=== PATIENT | male | born 1965 | race Caucasian/White ===

== ENCOUNTER → 2017-03-10 08:42 | Outpatient (CLI) | payer MEDICAID ==
[2012-07-03 06:33] VITALS: BMI 20.2
== END | disposition home or self-care (01) ==
LOC: D.MRI 08:42
DX: M25.561 Pain in right knee (principal)

== ENCOUNTER 2017-07-18 13:10 | Emergency (ER) | payer MEDICAID ==
[2012-07-03 06:33] VITALS: BMI 20.2
[~2017-07-18 13:10] MED LIST: LISINOPRIL10 MG PO
[2017-07-18 15:40] LABS: BASOPHILS 0.6 % (0-2); EOSINOPHILS 0.7 % (0-7); HEMATOCRIT 36.3 % (42.0-54.0); IMMATURE GRANULOCYTES 0.3 % (0-5); LYMPHOCYTES 16.1 % (15-50); MCH 31.3 pg (26.0-34.0); MCHC 33.1 g/dL (31.0-37.0); MCV 94.8 fL (80.0-100.0); MEAN PLATELET VOLUME 9.2 fL (7.4-10.4); MONOCYTES 10.9 % (2-11); NEUTROPHILS 71.4 % (40-80); RBC 3.83 10x6/uL (4.20-6.10); RDW 14.3 % (11.5-14.5); WBC 12.4 10x3/uL (4.8-10.8)
[2017-07-18 15:45] LABS: PLATELET COUNT 348 10x3/uL (130-400)
[2017-07-18 15:48] LABS: APPEARANCE CLEAR (CLEAR); BILIRUBIN NEGATIVE (NEGATIVE); COLOR YELLOW (YELLOW); GLUCOSE NEGATIVE (NEGATIVE); KETONE MODERATE mg/dL (NEGATIVE); NITRITE POSITIVE (NEGATIVE); PROTEIN TRACE mg/dL (NEGATIVE); SPECIFIC GRAVITY 1.015 (1.005-1.020); UROBILINOGEN NORMAL (NORMAL)
[2017-07-18 15:49] LABS: BACTERIA MODERATE /hpf (NONE SEEN); RED CELLS - URINE OCC /hpf (0-5); WHITE CELLS - URINE 0-5 /hpf (0-5)
[2017-07-18 15:55] LABS: UDS - AMPHET NEGATIVE QUAL (NEGATIVE); UDS - BARB NEGATIVE QUAL (NEGATIVE); UDS - BENZO POSITIVE QUAL (NEGATIVE); UDS - COCAINE NEGATIVE QUAL (NEGATIVE); UDS - OPIATE NEGATIVE QUAL (NEGATIVE); UDS - PCP NEGATIVE QUAL (NEGATIVE); UDS - THC POSITIVE QUAL (NEGATIVE)
[2017-07-18 16:09] LABS: ALBUMIN 3.6 g/dL (3.4-5.0); ALKALINE PHOSPHATASE 74 U/L (46-116); ALT (SGPT) 13 U/L (10-68); BILIRUBIN - TOTAL 0.15 mg/dL (0.2-1.3); CALC OSMOLALITY 285 mosm/kg (275-300); CALCIUM 8.6 mg/dL (8.5-10.1); CARBON DIOXIDE 25.2 mmol/L (21.0-32.0); CHLORIDE - SERUM 108 mmol/L (98-107); CREATININE - SERUM 0.6 mg/dL (0.6-1.3); GLUCOSE 93 mg/dL (74-106); POTASSIUM - SERUM 3.2 mmol/L (3.5-5.1); PROTEIN - SERUM 6.2 g/dL (6.4-8.2); SODIUM 143 mmol/L (136-145); UREA NITROGEN 15 mg/dL (7-18); eGFR NON AFRICAN AMERICAN > 90 mL/min (90-120)
[2017-07-18 16:11] LABS: VALPROIC ACID (DEPAKOTE) 43.7 ug/mL (50.0-100.0)
== END 2017-07-18 16:45 | disposition home or self-care (01) ==
LOC: D.ER 13:10
PROVIDERS: Nurse Practitioner Family
DX: S69.91XA Unspecified injury of right wrist, hand and finger(s), initial encounter (principal); W19.XXXA Unspecified fall, initial encounter; Y93.89 Activity, other specified; Y92.029 Unspecified place in mobile home as the place of occurrence of the external cause; N39.0 Urinary tract infection, site not specified

== ENCOUNTER 2017-07-21 11:56 | Outpatient (CLI) | payer MEDICAID ==
[2017-07-21 12:31] LABS: HEMATOCRIT 37.2 % (42.0-54.0); HEMOGLOBIN 12.6 g/dL (13.5-17.5); MCH 32.4 pg (26.0-34.0); MCHC 33.9 g/dL (31.0-37.0); MCV 95.6 fL (80.0-100.0); MEAN PLATELET VOLUME 8.9 fL (7.4-10.4); RBC 3.89 10x6/uL (4.20-6.10); RDW 14.1 % (11.5-14.5); WBC 12.3 10x3/uL (4.8-10.8)
[2017-07-21] MEDS ORDERED: KLONOPIN1 MG PO (13:55)
[2017-07-21] MEDS ORDERED: DILANTIN100 MG PO (13:57)
[2017-07-21] MEDS ORDERED: DILANTIN50 MG PO (13:58)
[2017-07-21] MEDS ORDERED: KEPPRA SOLU100 MG/ML PO ×2 (14:00→14:01)
[2017-07-21] MEDS ORDERED: BACLOFEN20 M1 PO (14:02)
[2017-07-21] MEDS ORDERED: CLARITIN 10 MG10 MG PO (14:04)
[2017-07-21] MEDS ORDERED: CALCIUM 500 + D1 TAB PO (14:04)
[2017-07-21] MEDS ORDERED: VESICARE5 MG PO (14:06)
[2017-07-21] MEDS ORDERED: DEPAKOTE500 MG PO (14:06)
[2017-07-21] MEDS ORDERED: PERCOCET 5-3251 TAB PO (14:07)
[2017-07-21] MEDS ORDERED: CIPRO500 MG PO (14:08)
[2017-07-21 14:18] VITALS: BP 101/61; BMI 20.9
--- NOTE | 2017-07-21 14:50 | NUR ---
DR WILLARD NOTIFIED OF PATIENT'S CURRENT TREATMENT FOR URINARY INFECTION AND TEMP AT THIS TIME OF 99.3. DR WILLARD STATES SURGERY NEEDS TO BE CANCELLED
--- NOTE | 2017-07-21 14:55 | NUR ---
PATIENT NOTIFIED OF SURGERY CANCELLATION AND REASON. PATIENT UPSET BUT AGREEABLE. RIGHT FOREARM PIV DC'D, PATIENT TO DRESS IN PERSONAL CLOTHING
--- NOTE | 2017-07-21 15:04 | NUR ---
PATIENT ASKS IF DR WILLARD WILL GIVE HIM SOME PAIN MEDICATION, PATIENT STATES THAT [facility] "TOOK MY PERCOCET AND KLONOPIN AND KEPT IT BECAUSE I HAD A POCKET KNIFE." CALL PLACED TO DR WILLARD, DR WILLARD DECLINES TO PRESCRIBE ANYTHING AT THIS TIME, PATIENT NOTIFIED. PATIENT SITTING IN CHAIR IN ROOM, DRESSED, STATES "I'M ABOUT TO CALL MY FRIEND THAT IS GOING TO DRIVE ME HOME."
--- NOTE | 2017-07-21 16:30 | NUR ---
PATIENT STATES HIS RIDE IS ON THE WAY AND REQUESTS WHEELCHAIR RIDE TO OUTPATIENT DOOR. PATIENT DISCHARGED VIA WHEELCHAIR TO OUTPATIENT DOOR, PATIENT WAITING ON BENCH OUTSIDE OUTPATIENT ENTRANCE. PATIENT AWAKE AND ALERT
== END 2017-07-21 11:57 | disposition home or self-care (01) ==
LOC: D.OPS 11:56 → EDSTATUS 14:05 → D.PAN 14:05 → D.OPS 16:00 → D.PAN 18:50
PROVIDERS: Anesthesiology
DX: T84.12 Displacement of internal fixation device of bones of limb (principal); Z01.812 Encounter for preprocedural laboratory examination; Z53.9 Procedure and treatment not carried out, unspecified reason

== ENCOUNTER → 2017-08-01 07:32 | Emergency (ER) | payer MEDICAID ==
[2017-07-21 14:18] VITALS: BMI 20.9
[~2017-08-01 07:32] MED LIST changes: +BACLOFEN20 M1 PO; +CALCIUM 500 + D1 TAB PO; +CIPRO500 MG PO; +CLARITIN 10 MG10 MG PO; +DEPAKOTE500 MG PO; +DILANTIN100 MG PO; +DILANTIN50 MG PO; +KEPPRA SOLU100 MG/ML PO; +KLONOPIN1 MG PO; +PERCOCET 5-3251 TAB PO; +VESICARE5 MG PO
[2017-08-01 08:57] LABS: BASOPHILS 0.3 % (0-2); EOSINOPHILS 0.4 % (0-7); HEMATOCRIT 40.7 % (42.0-54.0); HEMOGLOBIN 13.9 g/dL (13.5-17.5); IMMATURE GRANULOCYTES 0.3 % (0-5); MCH 32.2 pg (26.0-34.0); MCHC 34.2 g/dL (31.0-37.0); MCV 94.2 fL (80.0-100.0); MEAN PLATELET VOLUME 8.8 fL (7.4-10.4); MONOCYTES 7.2 % (2-11); NEUTROPHILS 83.8 % (40-80); PLATELET COUNT 348 10x3/uL (130-400); RBC 4.32 10x6/uL (4.20-6.10); RDW 13.7 % (11.5-14.5); WBC 13.4 10x3/uL (4.8-10.8)
[2017-08-01 09:13] LABS: ALBUMIN 3.4 g/dL (3.4-5.0); ALKALINE PHOSPHATASE 106 U/L (46-116); ALT (SGPT) 17 U/L (10-68); BILIRUBIN - TOTAL 0.29 mg/dL (0.2-1.3); CALC OSMOLALITY 280 mosm/kg (275-300); CALCIUM 8.8 mg/dL (8.5-10.1); CARBON DIOXIDE 23.9 mmol/L (21.0-32.0); CHLORIDE - SERUM 105 mmol/L (98-107); CREATININE - SERUM 0.6 mg/dL (0.6-1.3); GLUCOSE 106 mg/dL (74-106); POTASSIUM - SERUM 3.8 mmol/L (3.5-5.1); PROTEIN - SERUM 6.4 g/dL (6.4-8.2); SODIUM 141 mmol/L (136-145); UREA NITROGEN 13 mg/dL (7-18); eGFR NON AFRICAN AMERICAN > 90 mL/min (90-120)
== END | disposition home or self-care (01) ==
LOC: D.ER 07:32
PROVIDERS: Emergency Medicine
DX: F13.239 Sedative, hypnotic or anxiolytic dependence with withdrawal, unspecified (principal); F17.200 Nicotine dependence, unspecified, uncomplicated

== ENCOUNTER 2017-08-08 09:39 | Emergency (ER) | payer MEDICAID | END 2017-08-08 10:39 | disposition home or self-care (01) | LOC: D.ER 09:39 | DX: R56.9 Unspecified convulsions (principal); I10 Essential (primary) hypertension; Z76.0 Encounter for issue of repeat prescription ==

== ENCOUNTER 2017-09-18 21:34 | Emergency (ER) | payer MEDICAID | END 2017-09-19 00:40 | disposition home or self-care (01) | LOC: D.ER 21:34 | DX: S02.2XXA Fracture of nasal bones, initial encounter for closed fracture (principal); W05.0XXA Fall from non-moving wheelchair, initial encounter; Y93.89 Activity, other specified; Y92.129 Unspecified place in nursing home as the place of occurrence of the external cause; S80.02XA Contusion of left knee, initial encounter; I10 Essential (primary) hypertension ==

== ENCOUNTER 2018-03-09 06:40 | Day surgery (SDC) | payer MEDICAID ==
[~2018-03-09] VITALS: Ht 180.3 cm; Wt 60.3 kg
--- NOTE | ~2018-03-09 | OP ---
PATIENT NAME: ELÍAS AVELAR MEDICAL RECORD: [id number] :63 LOCATION:[facility] ADMISSION DATE: SURGEON: JOSHUA WILLARD MD DATE OF OPERATION: 03/09/2018 PREOPERATIVE DIAGNOSIS: Painful hardware of the left foot. POSTOPERATIVE DIAGNOSIS: Painful hardware of the left foot. PROCEDURE: Removal of painful hardware, dorsal aspect of the left foot. SURGEON: Joshua Willard MD ANESTHESIA: General. INTRAOPERATIVE COMPLICATIONS: None. SUMMARY OF PATHOLOGIC FINDINGS: All of the screws on the plate were loose, making removal relatively easy. Second plate over on the medial aspect of the foot was not removed as it has no evidence of causing tenderness to both physical exam and/or radiographic parameters. OPERATIVE SUMMARY IN DETAIL: After obtaining the appropriate preoperative orthopedic surgery consent as well as anesthetic consultation, evaluation and clearance, the patient was brought to the operating room and placed on the operating table in supine position. After general laryngeal mask administered, the tourniquet was placed about the proximal aspect of the left lower extremity. Left lower extremity was then prepped and draped in routine sterile fashion. The leg was elevated and exsanguinated, and the tourniquet was inflated to 350 mmHg. Fluoroscopy was brought in to identify exactly where the incision needed to be over the old incision which was very thin. An elliptical type incision was utilized to remove some of the very thin skin. Dissection was then carried down to the plate. The most prominent screw was proud and it was immediately removed along with the residual screws on the plate. The plate was also removed. The depth of the wound along with screw hole ingrowth and growth around the edge of the plate were smoothed. This was then copiously irrigated and closed with #2 Vicryl followed by 4-0 Prolene, combination of marleni sutures as well as simple sutures and mattress sutures. Sterile dressings were applied. Tourniquet was deflated. The patient was awakened and taken to recovery room in stable condition. All final needle and sponge counts were correct. TRANSINT:[id number] Voice Confirmation ID: [id number] DOCUMENT ID: [id number] JOSHUA WILLARD MD at 1035 CC: [id number] DICTATION DATE: 03/09/18 1017 PRINTING PLATE MAKER: 03/09/18 1347 DEP SD 03/09/18 [facility] [address] [place] [address]
[2018-03-09 07:24] VITALS: BP 145/71; Ht 180.3 cm; Wt 60.3 kg
[2018-03-09] MEDS ORDERED: PERCOCET 10/3251 TA1 PO (10:15)
== END 2018-03-09 13:25 | disposition home or self-care (01) ==
LOC: D.OPS 06:40 → D.PAN 07:30 → D.OPS 07:30
DX: T84.293A Other mechanical complication of internal fixation device of bones of foot and toes, initial encounter (principal); F17.200 Nicotine dependence, unspecified, uncomplicated; Z01.812 Encounter for preprocedural laboratory examination

== ENCOUNTER → 2019-07-29 10:21 | Outpatient (CLI) | payer MEDICAID ==
[2018-03-09 07:24] VITALS: BMI 18.5
[~2019-07-29 10:21] MED LIST changes: +BAYER CHEWABLE81 MG PO; +MOBIC7.5 MG PO; +MUPIROCIN22 GM TOPICAL; +PERCOCET 10/3251 TA1 PO; +PLAVIX75 MG PO; +PRAVACHOL40 MG PO
--- NOTE | 2019-07-30 13:51 | EC ---
PATIENT:ELÍAS AVELAR DATE OF SERVICE: 07/29/19 SEX: M MEDICAL RECORD: [id number] DATE OF : 63 LOCATION:[facility] AGE OF PATIENT: 54 ADMISSION DATE: 07/29/19 REFERRING PHYSICIAN: INTERPRETING PHYSICIAN: AROLDO NORRIS MD ECHOCARDIOGRAM REPORT ECHO CHARGES 5 ECHO LIMITED Date: 07/29/19 CLINICAL DIAGNOSIS: CAD/HEART MURMUR ECHOCARDIOGRAPHIC MEASUREMENTS (adult normal given) AC root (d.<3.7cm) 4.1 cm LV Septum d (<1.2 cm> 1.6 cm Valve Excursion 1.7 cm LV Septum (systole) 1.7 cm Left Atria (s.<4.0cm> 3.6 cm LVPW d(<1.2cm) 1.4 cm RV (d.<2.3cm) 4.1 cm LVPW (sytole) 1.7 cm LV diastole(<5.6CM) 4.3 cm MV E-F(>70mm/sec) cm LV systole 2.9 cm LVOT Diameter 1.9 cm MV exc.(>10mm) cm Est.ejection fraction (50-75%) % DOPPLER: LVIT cm/sec A 62.0 cm/sec E 65.0 cm/sec LA cm/sec RVSP 17 mmHg LVOT cm/sec AOP1/2T m/s Asc. Ao 89 cm/sec RVOT 110 cm/sec RA cm/sec PA cm/sec AV Gradient Peak 4.80 mmHg AV Mean 2.47 mmHg AV Area 3.0 cm MV Gradient Peak 2.48 mmHg MV Mean 1.09 mmHg MV Area cm COMMENTS: Analyst Business Analysis: 2 MARTHA DOUGLAS Mechanical Engineering Lecturer: 3 Dr. Pinon TAPE# PACS Pericardial Effusion N DATE OF SERVICE: 07/29/2019 Adequate 2D, color flow, spectral Doppler, and M-Mode. LVH is present. LV internal dimensions are normal. Wall motion is normal. EF is greater than or equal to 55%. Aortic valve is tricuspid. No evidence of stenosis by Doppler interrogation. Left atrium normal at 3.6 meters. Mitral valve shows no prolapse. Trace MR. Right-sided chambers grossly normal. Trace TR. ECHOCARDIOGRAM REPORT [id number] ELÍAS AVELAR TRANSINT:[id number] Voice Confirmation ID: [id number] DOCUMENT ID: [id number] AROLDO NORRIS MD at 1351 CC: [id number] DICTATION DATE: 07/30/19 1200 CLINICAL STAFF PHARMACIST: 07/30/19 1224 DEP CLI 07/29/19 [facility] [place] [id number] [place] [address]
--- NOTE | 2019-08-04 10:41 | ST ---
PATIENT:ELÍAS AVELAR MEDICAL RECORD: [id number] SEX: M LOCATION:[facility] ORDER #: ADMISSION DATE: 07/29/19 AGE OF PATIENT: 54 REFERRING PHYSICIAN: INTERPRETING PHYSICIAN: WADE CORDERO MD DATE OF SERVICE: 07/29/2019 INDICATION: Angina, coronary artery disease, hypertension, and hyperlipidemia. She was exercised on standard Lexiscan protocol with 27 mCi of sestamibi injected at peak stress, 9 mCi used previously for rest images. FINDINGS: Gated SPECT reveals preserved ejection fraction at 56% with good wall motion and thickening and brightening throughout all segments. SPECT imaging Cardiolite was used as myocardial perfusion agent. There is definite reversible ischemia throughout the inferior and apical segments. This includes the basal, mid, apical inferior segments as well as the apex itself. The reversibility is moderate. The amount of myocardial involved is moderate. OVERALL IMPRESSION: 1. This is an intermediate risk abnormal nuclear stress test. Reversible ischemia throughout the inferior and apical segments. 2. Gated SPECT reveals preserved ejection fraction at 56% in this patient with ongoing symptomatology, the current scan does suggest the presence of hemodynamically significant coronary artery disease. TRANSINT:[id number] Voice Confirmation ID: [id number] DOCUMENT ID: [id number] WADE CORDERO MD at 1041 CC: SONNY FUNG [id number] DICTATION DATE: 07/30/19821 STRIPPER BLACK AND WHITE: 07/31/19 0231 DEP CLI 07/29/19 [place] [id number]
== END | disposition home or self-care (01) ==
LOC: D.HCCECHO 10:21
PROVIDERS: ATTEND Internal Medicine Interventional Cardiology
DX: I20.9 Angina pectoris, unspecified (principal); R01.1 Cardiac murmur, unspecified

== ENCOUNTER 2019-08-12 10:58 | Outpatient (CLI) | payer MEDICAID ==
[~2019-08-12] VITALS: Ht 177.8 cm; Wt 65.0 kg
--- NOTE | ~2019-08-12 | HEMODYNAMI ---
PATIENT:ELÍAS AVELAR MEDICAL RECORD: [id number] : 63 LOCATION:[facility] ADMISSION DATE: 08/12/19 Generatedon:08/12/201913:38 Patient name: ELÍAS AVELAR Patient #: [id number] SSN: : 1965 Date of study: 08/12/2019 Page: Of Hemodynamic Procedure Report Patient Data Patient Demographics Procedure consent was obtained First Name: ELÍAS Gender: Male Last Name: VALENTINO : 1965 Patient #: [id number] Age: 54 year(s) Race: Unknown Additional ID: [id number] Contact details Address: [address] [place] [address] DRIVE State: [place] City: [facility] Zip code: [address] Admission Admission Data Admission Date: 08/12/2019 Admission Time: 10:58 Arrival Date: 08/12/2019 Arrival Time: 0:00 Admit Source: Other Insurance Payor: Medicaid [facility] #: [id number] Height (in.): 70.08 BSA: 1.81 (m2) Height (cm.): 178 BMI: 20.52 (kg/m2) Weight (lbs.): 143.3 Weight (kg.): 65 Lab Results Lab Result Date: 08/12/2019 Lab Result Time: 0:00 Biochemistry Name Units Result Min Max BUN mg/dl 22 --(----)-* 7 18 Creatinine mg/dl 0.8 --(-*--)-- 0.6 1.3 eGFR ml/min 90 --(*---)-- 90 120 NONAFRICAN CBC Name Units Result Min Max Hemoglobin g/dl 12.9 -*(----)-- 13.5 17.5 Procedure Procedure Types Cath Procedure Diagnostic Procedure [facility] w/Coronaries Sedation Charges Moderate Sedation up to 30 minutes PCI Procedure Coronary Stent Coronary Stent Initial Procedure Description Procedure Date Procedure Date: 08/12/2019 Procedure Start Time: 13:08 Procedure End Time: 13:31 Procedure Staff Name Function Seth Bonilla MD Performing Physician Trice Stephens RT Monitor Marilee Novak RT Scrub Hakeem Nicholson RN Nurse Procedure Data Cath Procedure Fluoroscopy Diagnostic fluoroscopy Total fluoroscopy Time: 4.8 time: 4.8 min min Diagnostic fluoroscopy Total fluoroscopy dose: 482 dose: 482 mGy mGy Contrast Material Contrast Material Type Amount (ml) Isovue 300 89 Entry Location Entry Primary Successful Side Size Upsize Upsize Entry Closure Succes sful Closure Location (Fr) 1 (Fr) 2 (Fr) Remarks Device Remarks Femoral Right 5 Fr 6 Fr Exoseal artery Short Estimated blood loss: 5 ml Diagnostic catheters Device Type Used For End Catheter Placement MULTIPACK JL 4.0 5Fr Left Coronary catheter Angiography MULTIPACK 3DRC 5Fr Right Coronary catheter Angiography MULTIPACK Pigtail 5 Fr LV Angiography catheter Procedure Complications No complications Procedure Medications Medication Administration Route Dosage Oxygen etCO2 Nasal cannula 2 l/min Lidocaine 2% added to field 20 Heparin Flush Bag added to field 2 bags (1000units/500ml NS) 0.9% NaCl I.V. 100 ml/hr Heparin Bolus I.V. 4000 units Integrilin (Bolus I.V. 5.6 ml 2mg/ml) Versed I.V. 2 mg Fentanyl I.V. 100 mcg Versed I.V. 2 mg Fentanyl I.V. 50 mcg Versed I.V. 1 mg Nitroglycerin IC/IA I.C. 150 mcg Plavix P.O. 600 mg Hemodynamics Rest BSA: 1.81 (m2) HGB: 12.9 (g/dl) O2 Consumption: Estimated: 214.69 (ml/min) O2 Co nsumption indexed: Estimated:118.61 (ml/min/m) Heart Rate: 70 (bpm) Pressure Samples Time Site Value (mmHg) Purpose Heart Use Rate(bpm) 13:14 LV 83/4,4 Snapshot 63 Gradients Valve Time Site Site Mean SEP/DFP Peak To Heart Use 1 2 (mmHg) (sec/min) Peak Rate (mmHg) (bpm) Aortic 13:14 LV AO 63 Snapshots Pre Cath Intra NCS Post Cath Vital Signs Time Heart Resp SPO2 etCO2 NIBP (mmHg) Rhythm Pain Sedation Rate (ipm) (%) (mmHg) Status Level (bpm) 12:58:42 59 14 100 0 143/81(107) NSR 0 (11) 10(A) , No pain 13:03:59 53 16 96 38.9 113/72(93) NSR 0 (11) 10(A) , No pain 13:09:08 54 14 100 35.9 123/76(113) NSR 0 (11) 10(A) , No pain 13:13:10 77 36 96 26.2 109/94(107) NSR 0 (11) 10(A) , No pain 13:17:18 57 12 99 38.9 124/69(94) NSR 0 (11) 10(A) , No pain 13:21:30 58 12 99 39 95/66(81) NSR 0 (11) 9(A) , No pain 13:25:38 64 10 99 41.2 73/53(65) NSR 0 (11) 9(A) , No pain 13:30:16 62 14 98 0 99/70(89) NSR 0 (11) 10(A) , No pain Medications Time Medication Route Dose Verified Delivered Reason Notes Effectiveness by by 13:00:28 Oxygen etCO2 2 Seth Allie used for Nasal l/min St Elías Nicholson RN procedure cannula 13:01:33 Versed I.V. 2 mg Seth Carrizalesie for sedation St Elías Nicholson RN, MD 13:01:39 Fentanyl I.V. 100 Seth Buffie for sedation mcg St Elías Nicholson RN, MD 13:04:35 Lidocaine 2% added 20ml Seth Gilory for local to vial [facility] anesthetic field MD BROOKS 13:04:41 Heparin Flush added 2 Seth Seth used for Bag to bags [facility] procedure (1000units/500ml field MD BROOKS NS) 13:04:49 0.9% NaCl I.V. 100 Seth Buffie Per physician ml/hr St Elías Nicholson RN, MD 13:10:03 Fentanyl I.V. 50 Seth Buffie for sedation mcg St Elías Nicholson RN, MD 13:10:58 Versed I.V. 2 mg Seth Buffie for sedation St Elías Nicholson RN, MD 13:16:42 Heparin Bolus I.V. 4000 Seth Carrizalesie for units St Elías Nicholson RN anticoagulation 13:18:09 Integrilin I.V. 5.6 Seth Allie for waste d (Bolus 2mg/ml) ml St Elías Nicholson RN antiplatelet 4.4 ml MD therapy of vial 13:19:26 Versed I.V. 1 mg Seth Palacio for sedation St Elías Nicholson RN, MD 13:25:33 Nitroglycerin I.C. 150 Seth Ann for IC/IA mcg St Elías Evangelista MD, MD 13:35:22 Plavix P.O. 600 Seth Palacio for waste d mg St Elías Nicholson RN antiplatelet 4.4 ml therapy of vial Procedure Log Time Note 12:42:46 Diagnostic Cath Status : Elective 12:43:21 Hakeem Nicholson RN sent for patient. Start room use. 12:43:24 Time tracking: Regular hours (M-F 7:00 - 5:00) 12:43:29 Plan of Care:Hemodynamics will remain stable., Cardiac rhythm will remain stable., Comfort level will be maintained., Respiratory function will remain adequate., Patient/ family verbilizes understanding of procedure., Procedure tolerated without complication., Recovers from procedure without complications.. 12:52:25 Patient received from Pre/Post Procedure Room to [facility] 1 Alert and oriented. Tansferred to table in Supine position. 12:52:31 Signed procedure consent form obtained from patient. 12:52:32 Warm blankets applied, and zhen hugger turned on for patient comfort. 12:52:36 Correct patient and procedure confirmed by team. 12:52:37 ECG and BP/O2 sat monitors applied to patient. 12:57:31 Vital chart was started 12:57:32 Baseline sample Acquired. 12:57:49 Full Disclosure recording started 12:58:07 H&P Date Dictated: 08/12/2019 H&P Addendum completed by physician on day of procedure. (MUST COMPLETE FOR ALL OUTPATIENTS), New H&P dictated by physician.. 12:58:08 Pre-procedure instructions explained to patient. 12:58:09 Pre-op teaching completed and patient verbalized understanding. 12:58:10 Family in waiting room. 12:58:12 Patient NPO since Midnight. 12:58:15 Is the patient allergic to Iodine/contrast media? No. 12:58:22 Was the patient premedicated? No 12:58:24 Is patient on blood thinner?No 12:58:45 Patient diabetic? No. 12:58:47 Previous problem with sedation/anesthesia? No ? 12:58:49 Snore? Yes 12:58:50 Sleep apnea? No 12:58:51 Deviated septum? No 12:58:52 Opens mouth fully? Yes 12:58:54 Sticks out tongue? Yes 12:58:57 Airway obstruction? No ? 12:59:05 Dentures? No ? 12:59:10 Pre procedure: right dorsailis pedis pulse 2+ Normal; easily identifiable; not easily obliterated 12:59:13 Pre procedure: left dorsailis pedis pulse 2+ Normal; easily identifiable; not easily obliterated 12:59:17 Patient pain scale 0/10 ?. 12:59:29 IV patent on arrival in left forearm with 0.9% NaCl at [facility]. 12:59:38 Lab results completed and on chart. 12:59:50 Stress Test: no; abnormal ? 12:59:55 Risk of Mortality: 0.1 13:00:05 Risk of blood transfusion: 0.6 13:00:10 Risk of AMEE: 0.8 13:00:17 Right groin area was prepped with chlora-prep and draped in sterile fashion 13:00:18 Alarms reviewed by R. N. 13:00:18 Sharps counted by scrub and verified by R.N. 13:00:20 Physician arrived 13:00:20 --------ALL STOP TIME OUT------ 13:00:21 Final Timeout: patient, procedure, and site verified with staff and physician. All members of the team are in agreement. 13:00:23 Right groin site verified by team. 13:00:27 Fire Safety Assessment: A--An alcohol-based skin anteseptic being used preoperatively., C--Open oxygen or nitrous oxide is being used., D--An ESU, laser, or fiber-optic light is being used. 13:00:28 Oxygen 2 l/min etCO2 Nasal cannula was administered by Hakeem Nicholson RN; used for procedure; Verbal order read back and verified. 13:00:31 Physical assessment completed. ASA score P 2 - A patient with mild systemic disease as per Seth Bonilla MD. 13:01:33 Versed 2 mg I.V. was administered by Hakeem Nicholson RN; for sedation; Verbal order read back and verified. 13:01:39 Fentanyl 100 mcg I.V. was administered by Buffie Nicholson RN; for sedation; Verbal order read back and verified. 13:02:32 1) 90+ Normal kidney functon but urine findings or structural abnormalities or genetic trait point to kidney disease. 13:02:36 Maximum allowable contrast dose (3.7 X eGFR X 0.75)250 ml. 13:02:40 Sedation plan: IV Moderate Sedation Medication:Versed, Fentanyl 13:02:47 Use device set Femoral Dx 13:02:49 ACIST Syringe (44658) opened to sterile field. 13:02:49 Bag Decanter (2002S) opened to sterile field. 13:02:55 Medline Cath Pack ([id number]) opened to sterile field. 13:02:56 ACIST Hand Control (59138) opened to sterile field. 13:02:57 ACIST Manifold (46801) opened to sterile field. 13:02:57 DIAGNOSTIC Multipack 5Fr catheter set (KR2681) opened to sterile field. 13:02:58 Tegaderm 4 x 4 (1626W) opened to sterile field. 13:02:59 SHEATH 5FR [place] (UDS988) opened to sterile field. 13:03:00 EMERALD Guide Wire (373-576) opened to sterile field. 13:04:35 Lidocaine 2% 20ml vial added to field was administered by Seth Bonilla MD; for local anesthetic; Verbal order read back and verified. 13:04:41 Heparin Flush Bag (1000units/500ml NS) 2 bags added to field was administered by Seth Bonilla MD; used for procedure; Verbal order read back and verified. 13:04:49 0.9% NaCl 100 ml/hr I.V. was administered by Hakeem Nicholson RN; Per physician; Verbal order read back and verified. 13:07:30 Admit Source: Other 13:07:33 Arrival Date: 08/12/2019 12:00:00 AM 13:07:39 Insurance Payor : Medicaid 13:07:56 Patient Height : 70.08 inches 13:07:59 Patient Weight : 143.3 lbs 13:08:52 Lab Result : eGFR NONAFRICAN 90 ml/min 13:08:52 Lab Result : Hemoglobin 12.9 g/dl 13:08:52 Lab Result : BUN 22 mg/dl 13:08:52 Lab Result : Creatinine 0.8 mg/dl 13:08:55 Procedure started. 13:08:58 Local anesthetic to right femoral artery with Lidocaine 2% by Seth Bonilla MD.INITIAL ACCESS ONLY 13:10:03 Fentanyl 50 mcg I.V. was administered by Hakeem Nicholson RN; for sedation; Verbal order read back and verified. 13:10:29 A 5 Fr sheath was inserted into the Right Femoral artery 13:10:54 A MULTIPACK JL 4.0 5Fr catheter was advanced over the wire and used for Left Coronary Angiography. 13:10:58 Versed 2 mg I.V. was administered by Hakeem Nicholson RN; for sedation; Verbal order read back and verified. 13:11:33 LCA angiography performed. 13:11:36 Injector settings: Ml/sec: 3, Volume: 6, 13:12:48 Catheter removed. 13:12:59 A MULTIPACK 3DRC 5Fr catheter was advanced over the wire and used for Right Coronary Angiography. 13:13:35 RCA angiography performed. 13:13:39 Injector settings: Ml/sec: 3, Volume: 6, 13:13:42 Catheter removed. 13:13:48 A MULTIPACK Pigtail 5 Fr catheter was advanced over the wire and used for LV Angiography. 13:13:57 Zero performed for pressure channel P1 13:14:32 WHISPER 300cm guide wire ([id number]) opened to sterile field. 13:14:33 INFLATOR Merit BasixCompak (KK3230) opened to sterile field. 13:14:33 SHEATH 6FR Newcastle (PWP480) opened to sterile field. 13:14:43 LV hemodynamics recorded. 13:14:44 LV gram done using CISNEROS 13:14:59 EF : 55 % 13:15:33 ACCDominant side:Right 13:15:37 Catheter removed. 13:15:38 Proceeding to intervention. 13:15:46 GUIDE 6FR HS I SH catheter ([id number]) opened to sterile field. 13:15:58 Sheath upsized to a 6 Fr Short. 13:16:02 ACC Pre-intervention ELISEO Flow is 3. 13:16:08 Pre PCI Site: [place] mRCA has 90% stenosis. 13:16:14 6 Fr hs 1 sh guide catheter was inserted over the wire 13:16:24 whisper wire advanced. 13:16:42 Heparin Bolus 4000 units I.V. was administered by Hakeem Nicholson RN; for anticoagulation; Verbal order read back and verified. 13:16:43 Wire advanced across lesion. 13:18:09 Integrilin (Bolus 2mg/ml) 5.6 ml I.V. was administered by Hakeem Nicholson RN; for antiplatelet therapy; wasted 4.4 ml of vial Verbal order read back and verified. 13:19:26 Versed 1 mg I.V. was administered by Hakeem Nicholson RN; for sedation; Verbal order read back and verified. 13:19:28 Inflate balloon Inflation number: 1 A EMERGE OTW 2.5 x 15 balloon ([id number]) was prepped and advanced across the Mid RCA 90, then inflated to 10 GENEVA for 0:30 (min:sec) 0. 13:19:59 Inflation number: 2 The EMERGE OTW 2.5 x 15 balloon ([id number]) was reinflated across the Mid RCA 0, to 10 GENEVA for 0:30 (min:sec) . 13:20:15 Balloon removed over the wire. 13:23:12 Place stent Inflation Number: 3 A FERNANDO OTW 3.0 x 18 stent ([id number]) was prepped and advanced across the Mid RCA 90. The stent was deployed at 12 GENEVA for 0:30 (min:sec) . 13:25:33 Nitroglycerin IC/IA 150 mcg I.C. was administered by Seth Bonilla MD; for vasodilation; Verbal order read back and verified. 13:27:00 Inflation number: 4 The stent balloon was then re-inflated across the Mid RCA to 6 GENEVA for 0:30 (min:sec) . 13:28:19 Post PCI Site: [place] mRCA has 0% stenosis. 13:28:23 Stent catheter was removed intact over wire. 13:28:23 Wire removed. 13:28:24 ACT drawn and resulted at OOR seconds. (normal therapeutic range 180-240 seconds). 13:28:24 Guide catheter removed. 13:28:28 ACC Post-intervention ELISEO Flow is 3. 13:29:14 EXOSEAL 6Fr (EX600) opened to sterile field. 13:29:25 Sheath removed intact; hemostasis achieved with Exoseal to the Right Femoral artery. 13:29:27 Procedure ended.(Physican Out) 13:29:39 Fluoroscopy time 04.80 minutes. 13:29:43 Flurop Dose total: 482 13:29:43 Fluoroscopy dose: 482 mGy 13:29:50 Dose Area Product 25634 mGy/cm. 13:30:03 Contrast amount:Isovue 300 89ml. 13:30:11 Maximum allowable dose exceeded? No. 13:30:19 Sharps counted by scrub and verified by R.N. 13:30:20 Insertion/operative site no bleeding no hematoma. 13:30:24 Post-op/insertion site Right Radial artery dressed using a 4 x 4 and Tegaderm. 13:30:28 Post procedure rhythm: unchanged. 13:30:30 Estimated blood loss: 5 ml 13:30:32 Post procedure instruction explained to patient.Patient verbalizes understanding. 13:30:32 Patient needs reinforcement of post procedure teaching. 13:30:45 Procedure type changed to Cath procedure, Diagnostic procedure, LHC, [facility] w/Coronaries, Sedation Charges, Moderate Sedation up to 30 minutes, PCI procedure, Coronary Stent, Coronary Stent Initial 13:30:46 Procedure and supply charges have been captured, reviewed, submitted and are correct. 13:30:51 Procedure Complication : No complications 13:30:54 Vital chart was stopped 13:30:56 [facility] Findings: MVD- PCI performed (see procedure note) 13:30:58 Operative report dictated upon procedure completion. 13:30:58 See physician's report for complete and final results. 13:31:00 Report given to Pre/Post Procedure Room. 13:31:03 Patient transfered to Pre/Post Procedure Room with Stretcher. 13:31:05 Procedure ended. 13:31:05 Full Disclosure recording stopped 13:31:13 ACC-PCI Only Patient was given prescriptions, or instructed by Seth Bonilla MD to start/continue the following medications upon discharge: Plavix 13:31:15 End room use (Document Last) 13:33:21 End room use (Document Last) 13:34:01 End room use (Document Last) 13:35:22 Plavix 600 mg P.O. was administered by Hakeem Nicholson RN; for antiplatelet therapy; wasted 4.4 ml of vial Verbal order read back and verified. Intervention Summary Intervention Notes Time ActionType Lesion and Equipment Action# Pressure Duration Attributes Used 13:19:28 Inflate Mid RCA EMERGE OTW 1 10 00:30 balloon 2.5 x 15 balloon ([id number]) 13:19:59 Reinflate Mid RCA EMERGE OTW 2 10 00:30 balloon 2.5 x 15 balloon ([id number]) 13:23:12 Place stent Mid RCA FERNANDO OTW 3.0 3 12 00:30 x 18 stent ([id number]) 13:27:00 Reinflate Mid RCA FERNANDO OTW 3.0 4 6 00:30 stent x 18 stent balloon ([id number]) Device Usage Item Name Manufacture Quantity Catalog Number Hospital Part Current M inimal Lot# / Charge Number Stock Stock Serial# Code ACIST Syringe Acist 1 09964 914368 061684 894403 2 0 (29342) Medical Systems Inc Bag Decanter Microtek 1 998112 13692 610744 5 () Medical Inc. Medline Cath Medline 1 [id number] 365158 14629 865723 5 Pack ([id number]) ACIST Hand Acist 1 12581 617508 557256 823786 5 Control Medical (11850) Systems Inc ACIST Acist 1 45364 020233 822676 654725 5 Manifold Medical (69168) Systems Inc DIAGNOSTIC Cardinal 1 TE5024 526536 78401 822653 3 0 Multipack 5Fr Health catheter set (UI8741) Tegaderm 4 x 3M 1 1626W 089530 499106 013522 5 4 (1626W) SHEATH 5FR Terumo 1 DAV309 711079 316314 157371 5 [place] (BLM480) BERNARDINOALD Guide Cardinal 1 502-455 785746 954073 937683 5 Wire Health (502-455) MULTIPACK JL Cardinal 1 248869 5 4.0 5Fr Health catheter MULTIPACK Cardinal 1 205786 5 3DRC 5Fr Health catheter MULTIPACK Cardinal 1 231383 5 Pigtail 5 Fr Health catheter WHISPER 300cm Maxwell 1 [id number] 952762 429114 251145 5 guide wire Vascular ([id number]) INFLATOR Merit 1 FE3087 624087 751258 907355 1 5 Cold Crate BasixCompak (CU8321) SHEATH 6FR Terumo 1 FWT940 224013 086106 487063 4 0 [place] (JLP244) GUIDE 6FR HS Medtronic 1 [id number] 393658 62558 575128 1 I SH catheter (NL9MUQTL) EMERGE OTW Wallis 1 [id number] 053470 735803 267190 5 [id number] 2.5 x 15 Scientific balloon ([id number]) FERNANDO OTW 3.0 Medtronic 1 [id number] 898889 4310462 950302 5 [id number] x 18 stent ([id number]) EXOSEAL 6Fr Cardinal 1 EX600 369603 112411 766819 1 0 (EX600) Health Signature Audit [place] Stage Time Signature Unsigned Intra-Procedure 08/12/2019 Trice Stephens 1:33:21 PM RT(R) Intra-Procedure 08/12/2019 Hakeem Nicholson RN 1:34:01 PM Intra-Procedure 08/12/2019 Seth Johnson 1:38:31 PM Elías BROOKS [id number] [place] [address]
[~2019-08-12 10:58] MED LIST changes: -BAYER CHEWABLE81 MG PO; -MOBIC7.5 MG PO; -MUPIROCIN22 GM TOPICAL; -PLAVIX75 MG PO; -PRAVACHOL40 MG PO
[2019-08-12] MEDS ORDERED: MOBIC7.5 MG PO (11:24)
[2019-08-12] MEDS ORDERED: MUPIROCIN22 GM TOPICAL (11:24)
[2019-08-12] MEDS ORDERED: PRAVACHOL40 MG PO (11:25)
[2019-08-12 11:54] VITALS: BP 115/63; Ht 177.8 cm; Wt 65.0 kg
[2019-08-12 11:54] LABS: BASOPHILS 1.1 % (0-2); EOSINOPHILS 2.9 % (0-7); HEMOGLOBIN 12.9 g/dL (13.5-17.5); IMMATURE GRANULOCYTES 0.2 % (0-5); MCH 32.3 pg (26.0-34.0); MCHC 33.9 g/dL (31.0-37.0); MEAN PLATELET VOLUME 9.9 fL (7.4-10.4); MONOCYTES 8.5 % (2-11); NEUTROPHILS 43.3 % (40-80); PLATELET COUNT 232 10x3/uL (130-400); WBC 6.5 10x3/uL (4.8-10.8)
[2019-08-12 12:17] LABS: CHOL - HDL RATIO 3.5 ratio (2.3-4.9)
[2019-08-12 12:31] LABS: CALC OSMOLALITY 278 mosm/kg (275-300); CALCIUM 9.1 mg/dL (8.5-10.1); CARBON DIOXIDE 28.8 mmol/L (21.0-32.0); CHLORIDE - SERUM 104 mmol/L (98-107); CREATININE - SERUM 0.8 mg/dL (0.6-1.3); GLUCOSE 90 mg/dL (74-106); POTASSIUM - SERUM 4.9 mmol/L (3.5-5.1); SODIUM 138 mmol/L (136-145); UREA NITROGEN 22 mg/dL (7-18); eGFR NON AFRICAN AMERICAN > 90 mL/min (90-120)
--- NOTE | 2019-08-12 13:46 | NUR ---
PT ARRIVED BY STRETCHER. PLACED ON MONITORS. ASSESSMENT COMPLETED. VSS. CALL LIGHT WITHIN REACH. NO FAMILY AT BEDSIDE AT THIS TIME.
[2019-08-12] MEDS ORDERED: BAYER CHEWABLE81 MG PO (13:53)
[2019-08-12] MEDS ORDERED: PLAVIX75 MG PO (13:53)
--- NOTE | 2019-08-12 14:01 | NUR ---
PT C/O PAIN "ALL OVER". DR. OLIVER ORDERED PERCOCET FOR PAIN. THIS IS A HOME MEDICATION. WILL GIVE SOON IT IS VERIFIED IN PHARMACY. RIGHT GROIN DRESSING C/D/I. NO S/S OF HEMATOMA NOTED. CALL LIGHT WITHIN REACH.
--- NOTE | 2019-08-12 14:30 | NUR ---
RIGHT GROIN DRESSING C/D/I. NO S/S OF HEMATOMA NOTED. CALL LIGHT WITHIN REACH. VSS. NO NEEDS AT THIS TIME. DENIES NAUSEA. TOLERATING SIPS OF COKE.
--- NOTE | 2019-08-12 15:00 | NUR ---
RIGHT GROIN DRESSING C/D/I. NO S/S OF HEMATOMA NOTED. CALL LIGHT WITHIN REACH. PT REPORTS PAIN 7/10 AT THIS TIME.
--- NOTE | 2019-08-12 15:30 | NUR ---
REPORT CALLED TO [facility]. SPOKE WITH NURSE SHIN BLOOM LPN. UPDATED HER ON PT'S STATUS AND MED CHANGES. INFORMED HER WE WOULD SEND PRESCRIPTION FOR PLAVIX AND MED LIST WITH HIM WITH HIS DISCHARGE INSTRUCTIONS. SHE VOICED UNDERSTANDING. NOTIFIED HER OF CLEARING INSPECTOR TIME OF 17:15.
--- NOTE | 2019-08-12 16:00 | NUR ---
RIGHT GROIN DRESSING C/D/I. NO S/S OF HEMATOMA NOTED. CALL LIGHT WITHIN REACH. VSS. STILL ON BEDREST IN SUPINE POSITION.
--- NOTE | 2019-08-12 16:13 | NUR ---
RIGHT GROIN DRESSING C/D/I. NO S/S OF HEMATOMA NOTED. PT'S HEAD OF BED INC TO 30 DEGREES. TOLERATED WELL. VSS. SET UP WITH SANDWICH TRAY AND DRINK. DENIES NAUSEA AT THIS TIME.
--- NOTE | 2019-08-12 16:52 | NUR ---
R GROIN SOFT, NO BLEEDING OR SWELLING NOTED. VSS. PT TOLERATED FOOD AND PO FLUIDS W/O NAUSEA. DISCHARGE INSTRUCTIONS REVIEWED W PT, HE VERBALIZED UNDERSTANDING. PT INSTRUCTED ON IMPORTANCE OF GETTING PLAVIX FILLED AND TO BEGIN TAKING IT TOMORROW, HE VERBALZIED UNDERSTANDING.
--- NOTE | 2019-08-12 17:06 | NUR ---
IV REMOVED W CATH INTACT. MONITORS REMOVED. R GROIN REMAINS SOFT, DRESSING CDI, NO S/O HEMATOMA. PT UP TO DRESS FOR DISCHARGE
--- NOTE | 2019-08-12 17:15 | NUR ---
PT TO BR VIA WC, VOIDING W/O DIFFICULITY
--- NOTE | 2019-08-12 17:26 | NUR ---
PT DISCHARGED VIA TO [facility] STAFF IN PRIVATE VEHICLE. PT HAD ALL BELONGINGS AND DISCHARGE INFORMATION.
--- NOTE | 2019-08-17 08:48 | HP ---
PATIENT: ELÍAS AVELAR MEDICAL RECORD: [id number] ACCOUNT: [id number] LOCATION:JEFE : 63 ADMISSION DATE: 08/12/19 PCP: JEFFERSON POWERS HISTORY AND PHYSICAL EXAMINATION HISTORY OF PRESENT ILLNESS: Elías Avelar is a 54-year-old gentleman with a history of hypertension, hyperlipidemia, strong family history of coronary artery disease, presents to the office, admitted with angina type symptomatology, chest tightness and pressure with exertion, been told he had a "tear of an artery in the past." We are asked to see. He was referred, underwent Cardiolite stress testing, which showed intermediate risk with a possible 2-vessel disease, being brought to outpatient for diagnostic selective coronary angiography. PAST MEDICAL HISTORY: Includes history of; 1. Hypertension. 2. Hyperlipidemia. MEDICATIONS: Pravachol 40 mg every day, Prinivil 20 mg p.o. every day, sertraline 50 mg at bedtime, tizanidine 4 mg at bedtime, meloxicam 15 mg b.i.d. PHYSICAL EXAMINATION: GENERAL: Pleasant female in no acute distress, appears stated age. HEENT: Normocephalic, atraumatic. NECK: No JVD or bruit. HEART: Regular. LUNGS: Novak clear. ABDOMEN: Soft, nontender. EXTREMITIES: Pulse 2+. No edema. IMPRESSION: Progressive, basically class III angina at this point with nuclear stress testing as described above. TRANSINT:[id number] Voice Confirmation ID: [id number] DOCUMENT ID: [id number] AROLDO NORRIS MD at 0848 CC: [id number] DICTATION DATE: 08/12/19 1304 AUTOCLAVE OPERATOR: 08/12/19 1344 DEP CLI 08/12/19 [address] [place] [address]
--- NOTE | 2019-08-17 08:48 | OP ---
PATIENT NAME: ELÍAS AVELAR MEDICAL RECORD: [id number] :63 LOCATION:D.CAT ADMISSION DATE: SURGEON: AROLDO NORRIS MD DATE OF OPERATION: 08/12/2019 PROCEDURE: Left heart catheterization, selective coronary angiography, right femoral artery approach. CATHETERS: A 5-[place]izen [place] sheath, 5/4 left and right Santos, 5/4 pig. The procedure was well tolerated. The patient was returned to martinez. Sheath was removed. ExoSeal device was placed. FINDINGS: Left ventriculography in 30-degree CISNEROS view; normal wall motion and normal systolic function. CORONARY ANATOMY: LEFT MAIN: Left main is free of disease. LAD: Free of disease in the diagonal system. CIRCUMFLEX: Circumflex is free of disease in the marginal system. RIGHT CORONARY ARTERY: Dominant artery, gives rise to PDA, has 2 sequential stenosis approximately 90%, distally 80% correlating nicely with nuclear study. PLAN: Intervention momentarily. DESCRIPTION OF PROCEDURE: A 5-[place]izen [place] sheath was exchanged for a 6-[place] sheath. Hockey stick guiding catheter provided a good guiding catheter support followed by 300 cm Whisper wire. Pre-deployment balloon was 2.5 x 15 [place] balloon. We did distal inflation and 80% stenosis. This showed excellent stent like results of the distal stenosis. Next, a 3.0 x 15 mm [place] drug-eluting stent was placed in the proximal portion up to 14 atmospheres. Final angiography shows excellent resolution, 90% proximal stenosis, distal 80% stenosis, no significant residual. ELISEO flow was 3 throughout the procedure. Integrilin was used during the case. Sheath was closed with ExoSeal device. Plavix was loaded in the lab. TRANSINT:[id number] Voice Confirmation ID: [id number] DOCUMENT ID: [id number] AROLDO NORRIS MD at 0848 CC: [id number] DICTATION DATE: 08/12/19 1334 FOOD TRAY ASSEMBLER: 08/12/19 1408 DEP CLI 08/12/[address] [address]
== END 2019-08-12 17:25 ==
LOC: D.CATH 10:58
PROVIDERS: ATTEND Internal Medicine Interventional Cardiology
DX: I25.119 Atherosclerotic heart disease of native coronary artery with unspecified angina pectoris (principal)

== ENCOUNTER 2019-10-21 01:37 | Observation (INO) | payer MEDICAID ==
[~2019-10-21] VITALS: Ht 177.8 cm; Wt 65.9 kg
[~2019-10-21 01:37] MED LIST changes: +BAYER CHEWABLE81 MG PO; +MOBIC7.5 MG PO; +MUPIROCIN22 GM TOPICAL; +PLAVIX75 MG PO; +PRAVACHOL40 MG PO
[2019-10-21] MEDS ORDERED: ZOLOFT25 MG PO (02:06)
[2019-10-21] MEDS ORDERED: PERCOCET 10-321 EAC1 PO (02:07)
[2019-10-21] MEDS ORDERED: ZANAFLEX2 M1 PO (02:07)
[2019-10-21] MEDS ORDERED: KLONOPIN1 MG PO (02:08)
[2019-10-21] MEDS ORDERED: ONDANSETRON ODT8 MG PO (02:08)
[2019-10-21 02:17] VITALS: BP 159/98
--- NOTE | 2019-10-21 02:20 | NUR ---
PT GIVEN URINAL
[2019-10-21 02:38] LABS: BASOPHILS 1.3 % (0-2); EOSINOPHILS 3.6 % (0-7); HEMATOCRIT 40.1 % (42.0-54.0); HEMOGLOBIN 13.4 g/dL (13.5-17.5); IMMATURE GRANULOCYTES 0.3 % (0-5); LYMPHOCYTES 50.3 % (15-50); MCH 32.1 pg (26.0-34.0); MCHC 33.4 g/dL (31.0-37.0); MCV 96.2 fL (80.0-100.0); MEAN PLATELET VOLUME 10.2 fL (7.4-10.4); NEUTROPHILS 36.5 % (40-80); PLATELET COUNT 193 10x3/uL (130-400); RBC 4.17 10x6/uL (4.20-6.10); RDW 14.7 % (11.5-14.5); WBC 7.4 10x3/uL (4.8-10.8)
[2019-10-21 02:40] LABS: CALC OSMOLALITY 284 mosm/kg (275-300); CALCIUM 8.6 mg/dL (8.5-10.1); CARBON DIOXIDE 30.5 mmol/L (21.0-32.0); CHLORIDE - SERUM 105 mmol/L (98-107); CREATININE - SERUM 0.8 mg/dL (0.6-1.3); GLUCOSE 92 mg/dL (74-106); POTASSIUM - SERUM 4.6 mmol/L (3.5-5.1); SODIUM 141 mmol/L (136-145); UREA NITROGEN 23 mg/dL (7-18); eGFR NON AFRICAN AMERICAN > 90 mL/min (90-120)
[2019-10-21 02:41] LABS: APTT 31.5 SECONDS (22.8-39.4); INR 0.92 (0.85-1.17); PROTIME 12.3 SECONDS (11.6-15.0)
[2019-10-21 02:56] LABS: ALBUMIN 3.3 g/dL (3.4-5.0); ALKALINE PHOSPHATASE 62 U/L (30-120); ALT (SGPT) 41 U/L (10-68); BILIRUBIN - TOTAL 0.27 mg/dL (0.2-1.3); CKMB 0.9 U/L (0.0-3.6); CREATINE KINASE 53 UL (21-232); MAGNESIUM - SERUM 1.9 mg/dL (1.8-2.4); PROTEIN - SERUM 6.4 g/dL (6.4-8.2)
[2019-10-21 02:57] LABS: TROPONIN-I < 0.017 ng/mL (0.000-0.060)
[2019-10-21 05:48] VITALS: BP 149/89; BMI 20.8
--- NOTE | 2019-10-21 07:26 | NUR ---
PATIENT IS AWAKE AND ALERT. HE IS RESTING ON HIS BACK IN BED. HE IS C/O BACK AND CHEST PAIN. HE REFUSED NITRO AND IS ASKING FOR MORPHINE. WILL GIVE MEDICINE FOR PAIN ORDERED PRN.
[2019-10-21 09:02] VITALS: Ht 177.8 cm; Wt 65.9 kg
[2019-10-21 09:03] VITALS: BP 131/73
[2019-10-21 09:27] LABS: CKMB 1.1 U/L (0.0-3.6); CREATINE KINASE 62 UL (21-232); TROPONIN-I < 0.017 ng/mL (0.000-0.060)
--- NOTE | 2019-10-21 09:44 | NUR ---
ASKED HARSHA BRAUN TO RESTART PATIENT HOME MEDICATIONS. HE SAYS HE IS STARTING TO SHAKE, AND NEEDS HIS HOME MEDS. SHE ACKNOWLEDGED.
[2019-10-21] MEDS ORDERED: DEPAKOTE500 MG PO (10:49)
[2019-10-21 11:17] LABS: % SATURATION 28 % (15-55); IRON 99 ug/dl (35-150); TOTAL IRON BIND CAPACITY 350 ug/dl (260-445); UNSAT IRON BIND CAPACITY 251 ug/dl (150-375)
[2019-10-21 11:48] LABS: APPEARANCE CLEAR (CLEAR); BILIRUBIN NEGATIVE (NEGATIVE); COLOR YELLOW (YELLOW); GLUCOSE NEGATIVE (NEGATIVE); KETONE NEGATIVE (NEGATIVE); NITRITE NEGATIVE (NEGATIVE); PROTEIN NEGATIVE (NEGATIVE); SPECIFIC GRAVITY 1.015 (1.005-1.020); UROBILINOGEN NORMAL (NORMAL)
[2019-10-21 11:52] LABS: UDS - AMPHET NEGATIVE QUAL (NEGATIVE); UDS - BARB NEGATIVE QUAL (NEGATIVE); UDS - BENZO NEGATIVE QUAL (NEGATIVE); UDS - COCAINE NEGATIVE QUAL (NEGATIVE); UDS - OPIATE POSITIVE QUAL (NEGATIVE); UDS - PCP NEGATIVE QUAL (NEGATIVE); UDS - THC POSITIVE QUAL (NEGATIVE)
[2019-10-21 13:27] VITALS: BP 132/77
--- NOTE | 2019-10-21 13:33 | NUR ---
FAMILY IS AT BEDSIDE. THE NIECE WANT THE PATIENT TO HAVE A CASANDRA ALARM PLACED ON HIS BED, BECAUSE THEY ARE WORRIED HE WILL FALL. WE PLACED A CASANDRA ALARM ON THE BED, AND THE PATIENT STATES THAT HE IS ABLE TO GET UP WITHOUT HELP, AND HE IS NOT WEAK. HOWEVER, HE IS A LITTLE UNSTEADY ON HIS FEET BECAUSE HE HAS BEEN NPO, AND HAD HIS MEDICATIONS. HE WILL BE ABLE TO EAT SOON HE HAS COMPLETED HIS STRESS TEST.
[2019-10-21 15:47] VITALS: BP 111/68
--- NOTE | 2019-10-21 15:59 | NUR ---
STRESS TEST COMPLETED, PATIENT HAS EATTEN. BED ALARM ON.
--- NOTE | 2019-10-21 17:11 | NUR ---
IT IS NOTED THAT THE PATIENT LEFT EYE IS MORE DILATED THEN THE RIGHT. HIS LEFT EYE IS A 6MM AND RIGHT IS A 4MM. REPORTED TO APARNA REYES
[2019-10-21 20:30] VITALS: BP 133/81
--- NOTE | 2019-10-22 02:43 | NUR ---
PATIENT CALLED BECAUSE HIS DRESSING FELL OFF. UNAWARE THAT PATIENT HAD ANY DRESSING. PATIENT THEN PULLED DOWN HIS UNDER GARMENTS AND LIFTED HIS SCROTUM TO EXPOSE A SMALL WOUND. PATIENT CLAIMS THERE WAS AN ABCESS THAT THAT HE HAD EXCISED AND DRAINED. HE SAYS IT TUNNELS TOWARDS HIS ANUS CLOSE TO 2.5 INCHES. PLACED A 2X2 AND CLEAR DRESSING TO AREA.
--- NOTE | 2019-10-22 05:17 | NUR ---
I have reviewed this patient and I concur with the Shift Assessment completed by the Licensed Practical Nurse today this shift.
[2019-10-22 06:04] VITALS: BP 116/65
[2019-10-22 06:40] LABS: ALBUMIN 2.9 g/dL (3.4-5.0); ANION GAP 9.5 mmol/L (8-16); BILIRUBIN - TOTAL 0.27 mg/dL (0.2-1.3); POTASSIUM - SERUM 4.5 mmol/L (3.5-5.1); PROTEIN - SERUM 5.7 g/dL (6.4-8.2)
[2019-10-22 06:44] LABS: CREATININE - SERUM 1.1 mg/dL (0.6-1.3)
[2019-10-22 07:27] LABS: BASOPHILS 1.6 % (0-2); EOSINOPHILS 3.3 % (0-7); HEMOGLOBIN 12.7 g/dL (13.5-17.5); IMMATURE GRANULOCYTES 0.4 % (0-5); LYMPHOCYTES 47.6 % (15-50); MCH 32.2 pg (26.0-34.0); MCHC 33.4 g/dL (31.0-37.0); MCV 96.4 fL (80.0-100.0); MEAN PLATELET VOLUME 10.5 fL (7.4-10.4); MONOCYTES 9.7 % (2-11); NEUTROPHILS 37.4 % (40-80); PLATELET COUNT 181 10x3/uL (130-400); RBC 3.94 10x6/uL (4.20-6.10); RDW 14.3 % (11.5-14.5)
--- NOTE | 2019-10-22 07:56 | NUR ---
PT A/O X4 RR EVEN AND UNLABORED LAYING IN BED. VSS. BED LOW CALL LIGHT WITHIN REACH. WILL CONTINUE TO MONITOR.
[2019-10-22 09:01] VITALS: BP 145/78
--- NOTE | 2019-10-22 11:03 | NUR ---
APARNA ROJO CALLED FOR NITRATE ORDERS FOR PT AT D/C. NO ORDERS GIVEN.
[2019-10-22] MEDS ORDERED: ISOSORBIDE MONO30 M1 PO (11:10)
--- NOTE | 2019-10-22 12:18 | MORECARE ---
CASE MANAGEMENT DISCHARGE SUMMARY PATIENT: ELÍAS AVELAR UNIT: [id number] ADM DATE: 10/21/19 AGE: 54 : 63 SEX: M ROOM/BED: D.2108 AUTHOR: SHARI LINDER PHYSICIAN: REFERRING PHYSICIAN: REBECCA RAMOS MD DATE OF SERVICE: 10/22/19 Discharge Plan Patient Name: ELÍAS AVELAR Facility: [facility]:[place] : 1965 Planned Disposition: Nursing Facility [facility] Anticipated Discharge Date: 10/22/19 Discharge Date: Expected LOS: 1 Initial Reviewer: SYED Initial Review Date: 10/22/2019 Generated: 10/22/19 1:18 pm DCPIA - Discharge Planning Initial Assessment Updated by [email or web address]: Frankie Spears on 10/22/19 12:15 pm * Is the patient Alert and Oriented? Yes * How many steps to enter\exit or inside your home? NONE * PCP DR. FUNG * Pharmacy [facility] [place] * Preadmission Environment [facility] * Facility Name [facility] * ADLs Partial Dependent * Partial ADLs (Assistance needed) Medication Management * Equipment Cane Wheelchair * Other Equipment ALL MEDICAL EQUIPMENT PROVIDED BY FACILITY * List name and contact numbers for known caregivers / representatives who currently or will assist patient after discharge: LETHA FERNANDO, FRIEND, * Verbal permission to speak to the caregivers and representatives has been obtained from the patient. N/A * Community resources currently utilized None * Please name any agencies selected above. NONE * Additional services required to return to the preadmission environment? No * Can the patient safely return to the preadmission environment? Yes * Has this patient been hospitalized within the prior 30 days at any hospital? No External Providers External Provider: [facility] Next Contact Date: 10/22/2019 Service Request Date: Service Type: Resolution: Reviewer: Comments: Patient Name: EÍLAS AVELAR Page [phone] at 1218 All edits/amendments must be made on the electronic document DICTATION DATE: 10/22/19 1218 INBOUND SALES REPRESENTATIVE: RICARDO 10/22/19 1218 RPT#: [id number] DC DATE: STATUS: ADM IN [facility] [address] [place] [address] END OF REPORT
--- NOTE | 2019-10-22 12:25 | MORECARE ---
CASE MANAGEMENT DISCHARGE SUMMARY PATIENT: ELÍAS AVELAR UNIT: [id number] ADM DATE: 10/21/19 AGE: 54 : 63 SEX: M ROOM/BED: D.2108 AUTHOR: KAILASH,DOC PHYSICIAN: REFERRING PHYSICIAN: REBECCA RAMOS MD DATE OF SERVICE: 10/22/19 Discharge Plan Patient Name: ELÍAS AVELAR Facility: [facility]:[place] : 1965 Planned Disposition: Nursing Facility [facility] Anticipated Discharge Date: 10/22/19 Discharge Date: Expected LOS: 1 Initial Reviewer: [email or web address] Initial Review Date: 10/22/2019 Generated: 10/22/19 1:24 pm Comments DCP- Discharge Planning Updated by [id number]: Frankie Spears on 10/22/19 11:[address] Patient Name: ELÍAS AVELAR Admission Status: ER Accout number: [id number] Admission Date: 10-21-2019 : 1965 Admission Diagnosis: Attending: REBECCA RAMOS Current LOS: 1 Anticipated DC Date: 10-22-2019 Planned Disposition: Nursing Facility [facility] Primary Insurance: MEDICAID [place] PLANNED EXTERNAL PROVIDER: [facility] MEDICAID BED Discharge Planning Comments: CM RECEIVED DISCHARGE ORDER, SPOKE TO PT IN ROOM WHO REPORTS LIVING AT [facility] FOR THE PAST 3 1/2 YEARS AND WILL BE RETURNING THERE TODAY. PT REPORTS ABILITY TO SIT FOR [facility]AN TRANSPORTATION, DENIES NEEDS. CHOICE COMPLETED. CM FAXED DISCHARGE INFORMATION TO [facility] AT [phone], NOTIFIED LADY VIA PHONE AT [phone] WHO WILL ARRANGE VAN CLIMATOLOGY PROFESSOR. CM FAXED DISCAHRGE INFORAMATION REQUESTED BY LADY TO [email or web address]. NURSE REPORT TO BE CALLED TO [facility] AT [phone]. [facility] TO ARRANGE VAN TRANSPORTATION. Solar Mechanical Engineer: Frankie Spears DCPIA - Discharge Planning Initial Assessment Updated by [email or web address]: Frankie Spears on 10/22/19 12:15 pm * Is the patient Alert and Oriented? Yes * How many steps to enter\exit or inside your home? NONE * PCP DR. FUNG * Pharmacy [facility] [place] * Preadmission Environment [facility] * Facility Name [facility] * ADLs Partial Dependent * Partial ADLs (Assistance needed) Medication Management * Equipment Cane Wheelchair * Other Equipment ALL MEDICAL EQUIPMENT PROVIDED BY FACILITY * List name and contact numbers for known caregivers / representatives who currently or will assist patient after discharge: LETHA FERNANDO, FRIEND, * Verbal permission to speak to the caregivers and representatives has been obtained from the patient. N/A * Community resources currently utilized None * Please name any agencies selected above. NONE * Additional services required to return to the preadmission environment? No * Can the patient safely return to the preadmission environment? Yes * Has this patient been hospitalized within the prior 30 days at any hospital? No Last DP export: 10/22/19 11:18 a Patient Name: ELÍAS AVELAR Page [phone] at 1225 All edits/amendments must be made on the electronic document DICTATION DATE: 10/22/19 1224 COIL WINDER HAND: RICARDO 10/22/19 1224 RPT#: [id number] DC DATE: STATUS: ADM IN [facility] [address] [place] [address] END OF REPORT
--- NOTE | 2019-10-22 13:21 | NUR ---
PHARMACY CHANGED FROM [facility] TO [facility].
--- NOTE | 2019-10-22 13:34 | NUR ---
PT DC'D TO NURSING FACILITY WITH D/C INSTRUCTIONS. IV DC'D.
== END 2019-10-22 13:43 ==
LOC: D.ER 01:37 → D.M2 02:20 → OBSVTIME 02:20 → D.M2 10-22 13:43
PROVIDERS: Family Medicine; ADMIT Internal Medicine Nephrology; ATTEND Internal Medicine Nephrology
DX: I25.110 Atherosclerotic heart disease of native coronary artery with unstable angina pectoris (principal); D64.9 Anemia, unspecified; N17.9 Acute kidney failure, unspecified; I10 Essential (primary) hypertension; E78.5 Hyperlipidemia, unspecified; Z86.73 Personal history of transient ischemic attack (TIA), and cerebral infarction without residual deficits; G40.909 Epilepsy, unspecified, not intractable, without status epilepticus; F17.213 Nicotine dependence, cigarettes, with withdrawal; F41.9 Anxiety disorder, unspecified; M54.9 Dorsalgia, unspecified; G89.29 Other chronic pain

== ENCOUNTER → 2020-05-24 13:31 | Outpatient (CLI) | payer MEDICAID ==
[2019-10-21 09:02] VITALS: BMI 20.8
[~2020-05-24 13:31] MED LIST changes: +ISOSORBIDE MONO30 M1 PO; +ONDANSETRON ODT8 MG PO; +PERCOCET 10-321 EAC1 PO; +ZANAFLEX2 M1 PO; +ZOLOFT25 MG PO
== END | disposition home or self-care (01) ==
LOC: D.LAB 13:31
PROVIDERS: ATTEND Family Medicine
DX: G40.909 Epilepsy, unspecified, not intractable, without status epilepticus (principal)

== ENCOUNTER → 2020-06-12 13:56 | Outpatient (CLI) | payer MEDICAID ==
[2019-10-21 09:02] VITALS: BMI 20.8
== END | disposition home or self-care (01) ==
LOC: D.LAB 13:56
PROVIDERS: ATTEND Family Medicine
DX: G40.909 Epilepsy, unspecified, not intractable, without status epilepticus (principal)

== ENCOUNTER 2020-06-19 08:15 | Day surgery (SDC) | payer MEDICAID ==
[~2020-06-19] VITALS: Ht 180.3 cm; Wt 63.6 kg
--- NOTE | ~2020-06-19 | HEMODYNAMI ---
PATIENT:ELÍAS AVELAR MEDICAL RECORD: [id number] : 63 LOCATION:[facility] ADMISSION DATE: 06/19/20 Generatedon:06/19/202010:52 Patient name: ELÍAS AVELAR Patient #: [id number] : 1965 Date of study: 06/19/2020 Page: Of Hemodynamic Procedure Report Patient Data Patient Demographics Procedure consent was obtained First Name: ELÍAS Gender: Male Last Name: VALENTINO : 1965 Patient #: [id number] Age: 55 year(s) Race: SSN: [id number] Additional ID: [id number] Contact details Address: [address] [place] [address] DRIVE State: [place] City: [facility] Zip code: [address] Admission Admission Data Admission Date: 06/19/2020 Admission Time: 8:15 Arrival Date: 06/19/2020 Arrival Time: 10:00 Admit Source: Other Insurance Payor: Medicaid [facility] #: [id number] Height (in.): 70.87 BSA: 1.8 (m2) Height (cm.): 180 BMI: 19.44 (kg/m2) Weight (lbs.): 138.89 Weight (kg.): 63 Lab Results Lab Result Date: 06/19/2020 Lab Result Time: 0:00 Biochemistry Name Units Result Min Max BUN mg/dl 16 --(---*)-- 7 18 Creatinine mg/dl 0.9 --(-*--)-- 0.6 1.3 eGFR ml/min 90 --(*---)-- 90 120 NONAFRICAN CBC Name Units Result Min Max Hemoglobin g/dl 14.5 --(*---)-- 13.5 17.5 Procedure Procedure Types Cath Procedure Diagnostic Procedure LHC LHC w/Coronaries FFR/IVUS FFR Initial Sedation Charges Moderate Sedation up to 30 minutes Procedure Description Procedure Date Procedure Date: 06/19/2020 Procedure Start Time: 10:26 Procedure End Time: 10:48 Procedure Staff Name Function Seth Bonilla MD Performing Physician Trice Stephens RT Monitor Pilar Riddle RT Scrub Genet Whelan RN Nurse Procedure Data Cath Procedure Fluoroscopy Diagnostic fluoroscopy Total fluoroscopy Time: 2.7 time: 2.7 min min Diagnostic fluoroscopy Total fluoroscopy dose: 359 dose: 359 mGy mGy Contrast Material Contrast Material Type Amount (ml) Isovue 300 0 Entry Location Entry Primary Successful Side Size Upsize Upsize Entry Closure Succes sful Closure Location (Fr) 1 (Fr) 2 (Fr) Remarks Device Remarks Femoral Right 5 Fr 6 Fr Exoseal artery Short Estimated blood loss: 0 ml Diagnostic catheters Device Type Used For End Catheter Placement MULTIPACK JL 4.0 5Fr Left Coronary catheter Angiography MULTIPACK 3DRC 5Fr Right Coronary catheter Angiography MULTIPACK Pigtail 5 Fr LV Angiography catheter Procedure Complications No complications Procedure Medications Medication Administration Route Dosage 0.9% NaCl I.V. 100 ml/hr Lidocaine 2% added to field 20 Heparin Flush Bag added to field 2 bags (1000units/500ml NS) Oxygen NC 2 l/min Versed I.V. 1 mg Fentanyl I.V. 50 mcg Versed I.V. 1 mg Fentanyl I.V. 50 mcg Heparin Bolus I.V. 2000 units Versed I.V. 1 mg Fentanyl I.V. 50 mcg Hemodynamics Rest BSA: 1.8 (m2) HGB: 14.5 (g/dl) O2 Consumption: Estimated: 203.54 (ml/min) O2 Con sumption indexed: Estimated:113.08 (ml/min/m) Heart Rate: 56 (bpm) Pressure Samples Time Site Value (mmHg) Purpose Heart Use Rate(bpm) 10:36 LV 111/13,13 Snapshot 69 Gradients Valve Time Site Site Mean SEP/DFP Peak To Heart Use 1 2 (mmHg) (sec/min) Peak Rate (mmHg) (bpm) Aortic 10:37 LV AO 67 Snapshots Pre Cath Intra NCS Post Cath Vital Signs Time Heart Resp SPO2 etCO2 NIBP (mmHg) Rhythm Pain Sedation Rate (ipm) (%) (mmHg) Status Level (bpm) 10:09:59 58 13 100 43.5 Measuring NSR 0 (11) 10(A) , No pain 10:11:21 57 15 100 41.3 Time NSR 0 (11) 10(A) Exceeded , No pain 10:14:09 61 19 100 40.5 160/96(125) NSR 0 (11) 10(A) , No pain 10:18:04 59 12 100 43.5 121/77(108) NSR 0 (11) 10(A) , No pain 10:22:00 56 15 100 33 121/71(91) NSR 0 (11) 9(A) , No pain 10:25:55 62 18 100 29.2 110/73(93) NSR 0 (11) 9(A) , No pain 10:29:47 61 16 100 49.5 118/77(100) NSR 0 (11) 9(A) , No pain 10:34:13 65 22 100 51.8 118/77(97) NSR 0 (11) 9(A) , No pain 10:38:13 68 18 100 46.5 116/69(92) NSR 0 (11) 9(A) , No pain 10:42:09 63 19 100 46.5 113/74(92) NSR 0 (11) 9(A) , No pain 10:46:30 73 7 100 51.8 130/84(112) NSR 0 (11) 10(A) , No pain Medications Time Medication Route Dose Verified Delivered Reason Notes Eff ectiveness by by 10:08:25 0.9% NaCl I.V. 100 Seth Genet used for ml/hr Irene Tip procedure MD FRANCIS 10:08:32 Lidocaine 2% added 20ml Seth Genet used for to vial Irene Tip procedure field MD FRANCIS 10:08:40 Heparin Flush added 2 Seth Genet used for Bag to bags Irene Tip procedure (1000units/500ml field BROOKS RN NS) 10:08:50 Oxygen NC 2 Seth Genet for low l/min Irene Tip 02 sats MD FRANCIS 10:18:11 Versed I.V. 1 mg Seth Genet for Irene Tip sedation MD FRANCIS 10:18:18 Fentanyl I.V. 50 Seth Genet for mcg Irene Tip sedation MD FRANCIS 10:22:26 Versed I.V. 1 mg Seth Genet for Irene Tip sedation MD FRANCIS 10:22:34 Fentanyl I.V. 50 Seth Genet for [facility] Tip sedation MD FRANCIS 10:28:52 Versed I.V. 1 mg Seth De León for Fulda Tip sedation MD FRANCIS 10:29:04 Fentanyl I.V. 50 Seth De León for [facility] Tip sedation MD FRANCIS 10:40:20 Heparin Bolus I.V. 2000 Seth De León Per verified units [facility] physician with dr MD FRANCIS [facility] Procedure Log Time Note 9:50:04 Pilar TIAN(R) sent for patient. Start room use. 9:58:00 Informed consent obtained and on chart 9:59:14 Arrival Date: 06/19/2020 10:00:00 AM 9:59:44 Admit Source: Other 9:59:46 Insurance Payor : Medicaid 10:00:53 Patient Height : 70.87 inches 10:00:57 Patient Weight : 138.89 lbs 10:01:36 Lab Result : Creatinine 0.9 mg/dl 10:01:36 Lab Result : BUN 16 mg/dl 10:01:36 Lab Result : eGFR NONAFRICAN 90 ml/min 10:01:36 Lab Result : Hemoglobin 14.5 g/dl 10:01:42 Diagnostic Cath Status : Elective 10:03:01 Procedure Status Elective Heart Cath (OP). 10:03:14 Time tracking: Regular hours (M-F 7:00 - 5:00) 10:03:18 Plan of Care:Hemodynamics will remain stable., Cardiac rhythm will remain stable., Comfort level will be maintained., Respiratory function will remain adequate., Patient/ family verbilizes understanding of procedure., Procedure tolerated without complication., Recovers from procedure without complications.. 10:03:22 Patient received from Pre/Post Procedure Room to CCL 2 Alert and oriented. Tansferred to table in Supine position. 10:03:23 Warm blankets applied, and zhen hugger turned on for patient comfort. 10:03:23 Correct patient and procedure confirmed by team. 10:03:24 ECG and BP/O2 sat monitors applied to patient. 10:08:09 Vital chart was started 10:08:25 0.9% NaCl 100 ml/hr I.V. was administered by Genet Whelan RN; used for procedure; Verbal order read back and verified. 10:08:32 Lidocaine 2% 20ml vial added to field was administered by Genet Whelan RN; used for procedure; Verbal order read back and verified. 10:08:40 Heparin Flush Bag (1000units/500ml NS) 2 bags added to field was administered by Genet Whelan RN; used for procedure; Verbal order read back and verified. 10:08:50 Oxygen 2 l/min NC was administered by Genet Whelan RN; for low 02 sats; Verbal order read back and verified. 10:13:53 Baseline sample Acquired. 10:14:00 Rhythm: sinus rhythm 10:14:01 Full Disclosure recording started 10:14:04 H&P Date Dictated: 06/19/2020 Within 30 days and on chart., H&P Addendum completed by physician on day of procedure. (MUST COMPLETE FOR ALL OUTPATIENTS). 10:14:06 Pre-procedure instructions explained to patient. 10:14:06 Pre-op teaching completed and patient verbalized understanding. 10:14:08 Family unavailable. 10:14:09 Patient NPO since Midnight. 10:14:11 Is the patient allergic to Iodine/contrast media? No. 10:14:18 Was the patient premedicated? Yes 10:14:24 Is patient on blood thinner?Yes 10:14:26 ACC The patient was administered the following blood thiners within the last 24 hours: ACCPlavix 10:14:28 Patient diabetic? No. 10:14:31 Previous problem with sedation/anesthesia? No ? 10:14:32 Snore? Yes 10:14:33 Sleep apnea? No 10:14:34 Deviated septum? No 10:14:35 Opens mouth fully? Yes 10:14:35 Sticks out tongue? Yes 10:14:37 Airway obstruction? No ? 10:14:39 Dentures? No ? 10:14:51 Pre procedure: right dorsailis pedis pulse 2+ Normal; easily identifiable; not easily obliterated 10:14:53 Pre procedure: left dorsailis pedis pulse 2+ Normal; easily identifiable; not easily obliterated 10:14:55 Patient pain scale 0/10 ?. 10:15:00 IV patent on arrival in left forearm with 0.9% NaCl at [facility]. 10:15:01 Lab results completed and on chart. 10:15:11 Stress Test: no; N/A ? 10:15:14 Right groin area was prepped with chlora-prep and draped in sterile fashion 10:15:15 Alarms reviewed by Priya N. 10:15:16 Sharps counted by scrub and verified by RMaxN. 10:17:06 Physician arrived 10:17:07 --------ALL STOP TIME OUT------ 10:17:07 Final Timeout: patient, procedure, and site verified with staff and physician. All members of the team are in agreement. 10:17:09 Right groin site verified by team. 10:17:12 Fire Safety Assessment: A--An alcohol-based skin anteseptic being used preoperatively., C--Open oxygen or nitrous oxide is being used., D--An ESU, laser, or fiber-optic light is being used. 10:17:22 Physical assessment completed. ASA score P 2 - A patient with mild systemic disease as per Seth Bonilla MD. 10:17:40 1) 90+ Normal kidney functon but urine findings or structural abnormalities or genetic trait point to kidney disease. 10:17:54 Maximum allowable contrast dose (3.7 X eGFR X 0.75)250 ml. 10:17:59 Sedation plan: IV Moderate Sedation Medication:Versed, Fentanyl 10:18:04 Use device set Femoral Dx 10:18:05 ACIST Syringe (58651) opened to sterile field. 10:18:05 Bag Decanter (2002S) opened to sterile field. 10:18:05 Medline Cath Pack ([id number]) opened to sterile field. 10:18:06 ACIST Hand Control (78658) opened to sterile field. 10:18:07 ACIST Manifold (09289) opened to sterile field. 10:18:07 DIAGNOSTIC Multipack 5Fr catheter set (UX0675) opened to sterile field. 10:18:07 Tegaderm 4 x 4 (1626W) opened to sterile field. 10:18:09 SHEATH 5FR Colbert (XJC342) opened to sterile field. 10:18:09 EMERALD Guide Wire (347-090) opened to sterile field. 10:18:11 Versed 1 mg I.V. was administered by Genet Whelan RN; for sedation; Verbal order read back and verified. 10:18:18 Fentanyl 50 mcg I.V. was administered by Genet Whelan RN; for sedation; Verbal order read back and verified. 10:20:58 Zero performed for pressure channel P1 10:21:04 Zero performed for pressure channel P1 10::26 Versed 1 mg I.V. was administered by Genet Whelan RN; for sedation; Verbal order read back and verified. 10:22:34 Fentanyl 50 mcg I.V. was administered by Genet Whelan RN; for sedation; Verbal order read back and verified. 10:26:45 Procedure started. 10:26:50 Local anesthetic to right femoral artery with Lidocaine 2% by Seth Bonilla MD.INITIAL ACCESS ONLY 10:27:00 A 5 Fr sheath was inserted into the Right Femoral artery 10:28:52 Versed 1 mg I.V. was administered by Genet Whelan RN; for sedation; Verbal order read back and verified. 10:29:04 Fentanyl 50 mcg I.V. was administered by Genet Whelan RN; for sedation; Verbal order read back and verified. 10:31:52 A MULTIPACK JL 4.0 5Fr catheter was advanced over the wire and used for Left Coronary Angiography. 10:32:14 LCA angiography performed. 10:32:16 Injector settings: Ml/sec: 3, Volume: 6, 10:33:40 Catheter removed. 10:33:41 A MULTIPACK 3DRC 5Fr catheter was advanced over the wire and used for Right Coronary Angiography. 10:33:42 RCA angiography performed. 10:33:44 Injector settings: Ml/sec: 3, Volume: 6, 10:35:32 Catheter removed. 10:36:04 A MULTIPACK Pigtail 5 Fr catheter was advanced over the wire and used for LV Angiography. 10:36:55 LV hemodynamics recorded. 10:36:56 LV gram done using CISNEROS 10:36:59 Injector settings: Ml/sec: 5, Volume: 15, 10:37:08 EF : 55 % 10:37:09 Catheter removed. 10:37:10 Proceeding to intervention. 10:38:16 Catheter removed. 10:38:33 SHEATH 6FR Colbert (COJ915) opened to sterile field. 10:38:33 INFLATOR Merit BasixCompak (ZD4549) opened to sterile field. 10:38:34 Paris Verrata Plus pressure wire (57552Q) opened to sterile field. 10:40:20 Heparin Bolus 2000 units I.V. was administered by Genet Whelan RN; Per physician; verified with dr bonilla Verbal order read back and verified. 10:41:01 Sheath upsized to a 6 Fr Short. 10:41:07 6 Fr jl 4 guide catheter was inserted over the wire 10:41:33 GUIDE 6FR JL 4.0 catheter (KD3IX43) opened to sterile field. 10:41:48 6 Fr jl 4 guide catheter was inserted over the wire 10:42:30 FFR/IFR wire advanced. 10:42:50 Baseline FFR 1. 10:44:26 mLAD lesion measured at 0.93 with IFR 10:44:34 mLAD lesion measured at 0.94 with IFR 10:45:03 Wire removed. 10:45:06 Guide catheter removed. 10:45:24 EXOSEAL 6Fr (EX600) opened to sterile field. 10:45:38 Sheath removed intact; hemostasis achieved with Exoseal to the Right Femoral artery. 10:45:40 Procedure ended.(Physican Out) 10:46:52 Fluoroscopy time 02.70 minutes. 10:46:56 Flurop Dose total: 359 10:46:56 Fluoroscopy dose: 359 mGy 10:47:01 Dose Area Product 39370 mGy/cm. 10:47:07 Contrast amount:Isovue 300 0ml. 10:47:13 Maximum allowable dose exceeded? No. 10:47:13 Sharps counted by scrub and verified by R.N. 10:47:14 Insertion/operative site no bleeding no hematoma. 10:47:17 Post-op/insertion site Right Femoral artery dressed using a 4 x 4 and Tegaderm. 10:47:19 Post Procedure Pulses reassessed and unchanged 10:47:22 Post procedure rhythm: unchanged. 10:47:24 Estimated blood loss: 0 ml 10:47:26 Post procedure instruction explained to patient.Patient verbalizes understanding. 10:47:26 Post procedure instruction explained to patient.Patient verbalizes understanding. 10:47:27 Patient needs reinforcement of post procedure teaching. 10:48:08 Procedure type changed to Cath procedure, Diagnostic procedure, LHC, LHC w/Coronaries, FFR/IVUS, FFR Initial, Sedation Charges, Moderate Sedation up to 30 minutes 10:48:10 Procedure and supply charges have been captured, reviewed, submitted and are correct. 10:48:13 Procedure Complication : No complications 10:48:16 Vital chart was stopped 10:48:20 [facility] Findings: ISABEL- will discuss options w/ pt 10:48:21 Operative report dictated upon procedure completion. 10:48:22 See physician's report for complete and final results. 10:48:25 Report given to Pre/Post Procedure Room. 10:48:29 Patient transfered to Pre/Post Procedure Room with Stretcher. 10:48:36 Procedure ended. 10:48:36 Full Disclosure recording stopped 10:48:41 End room use (Document Last) 10:50:02 End room use (Document Last) Device Usage Item Name Manufacture Quantity Catalog Hospital Part Current Minima l Lot# / Number Charge Number Stock Stock Serial# Code ACIST Acist 1 92816 950524 706773 281186 20 Syringe Medical (10401) Systems Inc Bag Microtek 1 611326 54694 351981 5 Decanter Medical Inc. () Medline Medline 1 [id number] 695516 21439 710805 5 Cath Pack ([id number]) ACIST Hand Acist 1 64009 274993 511789 828488 5 Control Medical (23094) Systems Inc ACIST Acist 1 13737 254755 847326 492736 5 Manifold Medical (77110) Systems Inc DIAGNOSTIC Cardinal 1 CH1723 155417 96860 133314 30 Multipack Health 5Fr catheter set (XJ1922) Tegaderm 4 3M 1 1626W 654095 181873 824661 5 x 4 (1626W) SHEATH 5FR Terumo 1 QSW556 431294 727214 307891 5 Colbert (NYX563) EMERALD Cardinal 1 502-455 873535 297410 690033 5 Guide Wire [facility] (502-455) MULTIPACK Cardinal 1 102551 5 JL 4.0 5Fr Health catheter MULTIPACK Cardinal 1 170983 5 3DRC 5Fr Health catheter MULTIPACK Cardinal 1 727876 5 Pigtail 5 Health Fr catheter SHEATH 6FR Terumo 1 [id number] 386677 474911 810430 40 Colbert (FOX037) INFLATOR Merit 1 QW2313 681237 109087 341327 15 Merit Medical BasixCompak (AM3925) Paris Paris 1 79182A 673747 203911867 339239 5 Verrata Plus pressure wire (83393K) GUIDE 6FR Medtronic 1 [id number] 875259 21284 595474 1 JL 4.0 catheter (BB8OA18) EXOSEAL 6Fr Cardinal 1 EX600 347326 183853 136399 10 (EX600) Health Signature Audit Hammett Stage Time Signature Unsigned Intra-Procedure 06/19/2020 Trice Stephens 10:50:02 AM RT(R) Intra-Procedure 06/19/2020 Genet 10:52:14 AM Tip FRANCIS Intra-Procedure 06/19/2020 Seth Johnson 10:52:35 AM Elías BROOKS Signatures Performing Physician : Signature : Seth Bonilla MD Date : Time : Monitor : Trice Stephens RT Signature : Date : Time : Nurse : Genet Signature : Tip RN Date : Time : [facility] [address] [place] [address]
[2020-06-19] MEDS ORDERED: KEPPRA750 MG PO (09:07)
[2020-06-19] MEDS ORDERED: BACLOFEN20 M1 PO (09:08)
[2020-06-19] MEDS ORDERED: KLONOPIN1 MG PO (09:08)
[2020-06-19] MEDS ORDERED: GABAPENTIN300 MG PO (09:13)
[2020-06-19] MEDS ORDERED: FEXOFENADINE HC60 MG PO (09:13)
[2020-06-19] MEDS ORDERED: RANEXA1000 MG PO (09:13)
[2020-06-19] MEDS ORDERED: FLUTICASONE PRO16 GM NASAL (09:14)
[2020-06-19] MEDS ORDERED: VITAMIN B-12100 MCG PO (09:15)
[2020-06-19 09:18] VITALS: BP 152/83; Ht 180.3 cm; Wt 63.6 kg
[2020-06-19 09:37] LABS: BASOPHILS 2.2 % (0-2); EOSINOPHILS 3.8 % (0-7); HEMATOCRIT 43.1 % (42.0-54.0); HEMOGLOBIN 14.5 g/dL (13.5-17.5); IMMATURE GRANULOCYTES 0.5 % (0-5); LYMPHOCYTES 33.2 % (15-50); MCH 31.7 pg (26.0-34.0); MCHC 33.6 g/dL (31.0-37.0); MCV 94.1 fL (80.0-100.0); MEAN PLATELET VOLUME 9.2 fL (7.4-10.4); MONOCYTES 10.2 % (2-11); NEUTROPHILS 50.1 % (40-80); RBC 4.58 10x6/uL (4.20-6.10); RDW 14.6 % (11.5-14.5); WBC 5.8 10x3/uL (4.8-10.8)
[2020-06-19 09:45] LABS: ALT (SGPT) 12 U/L (10-68); CALC OSMOLALITY 272 mosm/kg (275-300); CALCIUM 9.1 mg/dL (8.5-10.1); CARBON DIOXIDE 30.1 mmol/L (21.0-32.0); CHLORIDE - SERUM 101 mmol/L (98-107); CHOL - HDL RATIO 4.1 ratio (2.3-4.9); CHOLESTEROL, TOTAL 184 mg/dL (0-200); CREATININE - SERUM 0.9 mg/dL (0.6-1.3); GLUCOSE 91 mg/dL (74-106); HDL CHOLESTEROL 45 mg/dL (32-96); LDL CHOLESTEROL 118 mg/dL (0-100); LDL-HDL RATIO 2.6 ratio (1.5-3.5); PLATELET COUNT 291 10x3/uL (130-400); POTASSIUM - SERUM 4.4 mmol/L (3.5-5.1); SODIUM 136 mmol/L (136-145); TRIGLYCERIDE 106 mg/dL (30-200); UREA NITROGEN 16 mg/dL (7-18); eGFR NON AFRICAN AMERICAN > 90 mL/min (90-120)
--- NOTE | 2020-06-19 11:00 | NUR ---
PT REC'D TO ROOM 3 VIA STRETCHER FROM [facility]. MONITORS ESTAB. NO FAMILY AT BS. SEE CONSTRUCTION CARPENTER. ALARMS ON AND C/L IN REACH.
--- NOTE | 2020-06-19 11:15 | NUR ---
R GROIN SITE SOFT, NO S/S BLEEDING OR HEMATOMA. PULSES PALP, CAP REFILL WNL. VSS, PT DENIES NEEDS. ALARMS ON AND C/L IN REACH.
--- NOTE | 2020-06-19 11:40 | NUR ---
PT C/O CHRONIC BACK PAIN - REPOSITIONED FOR COMFORT. DR. NORRIS NOTIFIED - NEW ORDER FOR HOME MED PERCOCET REC'D. R GROIN SITE C/D/I, NO S/S BLEEDING OR HEMATOMA. PULSES PALP. VSS.
--- NOTE | 2020-06-19 11:53 | NUR ---
ADMIN PO PERCOCET PER MD ORDER - SEE EMAR. R GROIN SITE C/D/I, NO S/S BLEEDING OR HEMATOMA. PULSES PALP. VSS. ALARMS ON AND C/L IN REACH.
--- NOTE | 2020-06-19 12:00 | NUR ---
R GROIN SITE SOFT, NO S/S BLEEDING OR HEMATOMA. PULSES PALP. ALARMS ON AND C/L IN REACH.
--- NOTE | 2020-06-19 12:30 | NUR ---
R GROIN SITE C/D/I, NO S/S BLEEDING OR HEMATAMO. PT REPORTS ADEQUATE PAIN RELIEF AT THIS TIME. STATES " I HURT ALL THE TIME, PAIN LEVEL IS RARELY LESS THAN 7, AT BEST". GIVEN WARM BLANKET PER REQUEST. DENIES OTHER NEEDS. C/L IN REACH.
--- NOTE | 2020-06-19 13:01 | NUR ---
R GROIN SITE C/D/I. NO S/S BLEEDING OR HEMATOMA. PULSES PALP. HOB ELEVATED. SANDWICH TRAY AND COLA PROVIDED. C/L IN REACH.
--- NOTE | 2020-06-19 13:30 | NUR ---
R GROIN SITE SOFT, NO S/S BLEEDING OR HEMATOMA. PULSES PALP. PT TOLERATED EATING. DENIES NEEDS.
--- NOTE | 2020-06-19 13:45 | NUR ---
ALL DISCHARGE INSTRUCTIONS REVIEWED WITH PT - VERBALIZES UNDERSTANDING, NO QUESTIONS AT THIS TIME.
--- NOTE | 2020-06-19 13:50 | NUR ---
PIV D/C'D INTACT, DSG APPLIED. PT ALLOWED UP TO GET DRESSED AND GO TO BR INDEPENDENTLY, DENIES NEED FOR ASSISTANCE. C/L IN REACH.
--- NOTE | 2020-06-19 14:01 | NUR ---
NOISE NOTED FROM PT ROOM, PT FOUND ON KNEES, SMALL SKIN TEAR NOTED TO BRIDGE OF NOSE. PT ASSISTED UP, PRESSURE AND DSG APPLIED TO NOSE. PT STATES "ITS NOT BROKEN", NO SWELLING OR DEFORMITY NOTED, PT BREATHING WITHOUT DIFFICULTY. JANETTE BHATT, SERVICE ORDER CLERK NOTIFIED AND HERE. SEE CSTARS REPORT.
--- NOTE | 2020-06-19 14:10 | NUR ---
PT TO BR INDEPENDENTLY. D/C'D TO PRIVATE VEHICLE VIA WC, WITH ALL PAPERWORK AND BELONGINGS.
--- NOTE | 2020-06-20 08:21 | OP ---
PATIENT NAME: ELÍAS AVELAR MEDICAL RECORD: [id number] :63 LOCATION:[facility] ADMISSION DATE: SURGEON: AROLDO NORRIS MD DATE OF OPERATION: 06/19/2020 PROCEDURE: Left heart catheterization, selective coronary angiography plus iFR wire, right femoral artery approach. CATHETERS: A 5-Hungarian sheath, 5/4 left and right Santos, 5/4 pig. The procedure was well tolerated. The patient was returned to [facility]. Sheath removed. ExoSeal device placed. FINDINGS: Left ventriculography in 30-degree CISNEROS view: Normal wall motion and normal systolic function. CORONARY ANATOMY: LEFT MAIN: Free of disease. LAD: A questionable lesion in its proximal portion. The iFR wire in the LAD showed 4.93 consistent with nonsignificant stenosis. CIRCUMFLEX: Free of disease. RIGHT CORONARY ARTERY: Area of previous stenting is widely patent. No evidence of progression of [place] disease. No evidence of restenosis. IMPRESSION: No significant [place] disease in the LAD via the iFR wire. Widely patent stent. LV function remains normal. NTS:[id number] Voice Confirmation ID: [id number] DOCUMENT ID: [id number] AROLDO NORRIS MD at 0821 CC: [id number] DICTATION DATE: 06/19/20 1059 LOG LOADER: 06/19/202004 [facility] 06/19/20 [id number] [place] [id number]
== END 2020-06-19 14:10 | disposition home or self-care (01) ==
LOC: D.CATH 08:15
PROVIDERS: ATTEND Internal Medicine Interventional Cardiology
DX: I25.110 Atherosclerotic heart disease of native coronary artery with unstable angina pectoris (principal)

== ENCOUNTER → 2020-07-04 13:39 | Outpatient (CLI) | payer MEDICAID ==
[2020-06-19 09:18] VITALS: BMI 19.5
[~2020-07-04 13:39] MED LIST changes: +FEXOFENADINE HC60 MG PO; +FLUTICASONE PRO16 GM NASAL; +GABAPENTIN300 MG PO; +KEPPRA750 MG PO; +RANEXA1000 MG PO; +VITAMIN B-12100 MCG PO
== END | disposition home or self-care (01) ==
LOC: D.LAB 13:39
PROVIDERS: ATTEND Family Medicine
DX: I69.398 Other sequelae of cerebral infarction (principal)